=== PATIENT | female | born 1955 | race Hispanic/Latino ===

== ENCOUNTER → 2024-10-02 | Outpatient (REF) | payer MEDICARE ==
[~2024-10-02] MED LIST: FENTANYL CITRATE/PF 100MCG/2 ML INJ ONE; MIDAZOLAM HCL 2 MG/2 ML VIAL ONE; SODIUM CHLORIDE 0.9% 250ML 250 ML ONE
[2024-10-02 08:49] LABS: BASOPHILS % 0.2 % (0.0-1.0); EOSINOPHILS % 1.4 % (0.0-6.0); LYMPHOCYTES % 32.8 % (18.0-39.1); MONOCYTES % 7.2 % (4.4-11.3); NEUTROPHILS % 57.9 % (38.7-80.0); RED CELL DISTRIBUTION WIDTH 13.3 % (11.7-14.4)
[2024-10-02 09:22] LABS: INR 0.92
[2024-10-02 09:27] LABS: EST GLOMERULAR FILTRATION RATE 70.0 ML/MIN (>=60)
== END ==
LOC: CT 07:46
PROVIDERS: ATTEND Internal Medicine Hematology & Oncology
DX: D64.9 Anemia, unspecified (principal)
CPT/HCPCS: 36415; 38221; 77012; 80053; 82565; 84520; 85025; 85610; 85730; 88161; 88305; 88311; 88313; 88342; J2250; J3010; J7050; 38222; 88300